=== PATIENT | male | born 1940 | race Caucasian/White ===

== ENCOUNTER → 2018-04-25 | Outpatient (CLI) | payer MEDICARE, BC ==
--- NOTE | 2018-04-25 09:26 | Diagnostic Imaging Report ---
PROCEDURE:ABDOMINAL ULTRASOUND COMPARISON:None. INDICATIONS:Dyspepsia, rectal bleeding, epigastric pain FINDINGS: Liver: Measures 13.2 cm with increased hepatic parenchymal echogenicity. No focal mass. Main portal vein: Measures 0.8 cm with normal hepatopetal flow. Gallbladder: No stones or wall thickening. Common Bile Duct: Measures 0.4 cm with no echogenic filling defect. Sonographic Guadarrama's sign: Negative Right kidney: Measures 11.8 x 5.2 x 6.1 cm. No solid or cystic mass, echogenic calculi or hydronephrosis. Normal parenchymal echogenicity. Left kidney: Measures 12.9 x 5.9 x 5.7 cm. No solid or cystic mass or echogenic calculi. Prominent left renal pelvis. Normal parenchymal echogenicity. Spleen: 13.0 x 6.7 x 5.4 cm. No mass. Pancreas: Limited visualization. Inferior vena cava: Limited visualization. Aorta: Limited visualization. Ascites: None. CONCLUSION: Increased hepatic echogenicity. Fabian Quintanilla D.O. Dictated by: Fabian Quintanilla D.O. on 04/25/2018 at 9:30 Electronically approved by: Fabian Quintanilla D.O. on 04/25/2018 at 9:30
== END ==
LOC: US 07:37
PROVIDERS: ATTEND Internal Medicine Gastroenterology
DX: R10.13 Epigastric pain (principal); K30 Functional dyspepsia; K62.5 Hemorrhage of anus and rectum; E11.9 Type 2 diabetes mellitus without complications; I10 Essential (primary) hypertension; E66.9 Obesity, unspecified; Z71.3 Dietary counseling and surveillance; Z80.0 Family history of malignant neoplasm of digestive organs
CPT/HCPCS: 76700

== ENCOUNTER → 2018-07-24 | Day surgery (SDC) | payer MEDICARE, BC ==
[2018-07-20 16:19] LABS: BASOPHILS % 0.5 % (0.0-1.0); EOSINOPHILS # (AUTO) 0.2 (0.0-0.4); EOSINOPHILS % 2.9 % (0.0-6.0); HEMOGLOBIN 13.4 g/dL (14.0-18.0); LYMPHOCYTES # (AUTO) 1.1 (1.0-3.2); MEAN CORPUSCULAR HEMOGLOBIN 30.3 pg (28-32); MEAN CORPUSCULAR HGB CONC 34.4 g/dL (31-35); MEAN CORPUSCULAR VOLUME 88.2 fL (81-99); MONOCYTES # (AUTO) 0.6 (0.2-0.8); NEUTROPHILS # (AUTO) 3.6 (2.1-6.9); NEUTROPHILS % 65.4 % (38.7-80.0); PLATELET COUNT 118 x10e3/uL (140-360); RED BLOOD COUNT 4.42 x10e6/uL (4.3-5.7); RED CELL DISTRIBUTION WIDTH 12.9 % (11.7-14.4)
[~2018-07-24] MED LIST: ASPIR 8181 MG PO; CARDIZEM CD120 MG PO; CARVEDILOL12.5 MG PO; CLOPIDOGREL75 MG PO; FUROSEMIDE40 MG PO; GABAPENTIN300 MG PO; HYDRALAZINE HCL 20 MG/ML VIAL ONE; ISOSORBIDE MONO20 MG PO; LOSARTAN POTASS25 MG PO; LOVAZA1 GM PO; METFORMIN HCL500 MG PO; METHOCARBAMOL750 MG PO; METOPROLOL TART50 MG PO; MIDAZOLAM HCL 2 MG/2 ML VIAL ONE; NORVASC5 MG PO; ONGLYZA5 MG PO; PANTOPRAZOLE SO40 MG PO; PAXIL CR25 MG PO; POTASSIUM CHLO10 ME1 PO; PRADAXA150 MG PO; PROPOFOL IV EMULSION 10 MG/ML 20 ML VIAL ONE; PROSCAR5 MG PO
[2018-07-24 09:30] VITALS: BP 146/90
--- NOTE | 2018-07-24 09:33 | Operative Report ---
DATE OF PROCEDURE: July 24, 2018 NAME OF PROCEDURES 1. Esophagogastroduodenoscopy. 2. Colonoscopy. PREPROCEDURE DIAGNOSIS: Patient with history of dyspepsia, nausea, abdominal pain and episodes of rectal bleeding here for esophagogastroduodenoscopy and colonoscopy. DESCRIPTION OF PROCEDURE: After informed written consent and premedication with monitored anesthesia care, a standard video Olympus gastroscope was introduced into the mouth, esophagus, stomach, and to the 2nd portion of the duodenum. The 1st and 2nd portions of the duodenum appeared to be normal. The antrum showed gastritis, and biopsies were done. No ulcers were noted. The body and fundus appeared to be normal. Retroflexion revealed a small sliding hiatal hernia. The rest of the esophagus was normal. Colonoscopy: Standard video Olympus colonoscope was introduced into the rectum and all the way into the cecum. The cecum and appendiceal orifice appeared to be normal. The mid-ascending colon showed a 3-mm polyp, which was removed using cold biopsy forceps. The transverse colon was normal. The descending and sigmoid showed occasional diverticulosis. Small internal hemorrhoids were noted on retroflexion. IMPRESSION 1. Gastritis. 2. Hiatal hernia. 3. Diverticulosis. 4. Colon polyp. 5. Internal hemorrhoids. RECOMMENDATIONS: Check pathology. Repeat colonoscopy in 5 years. If abdominal pain persists, further evaluation will be recommended. The patient has been advised to follow up in the office in 3 weeks. Job#: [id number]
== END | disposition home or self-care (01) ==
LOC: OR 05:51
PROVIDERS: ATTEND Internal Medicine Gastroenterology
DX: K29.70 Gastritis, unspecified, without bleeding (principal); D12.2 Benign neoplasm of ascending colon; K44.9 Diaphragmatic hernia without obstruction or gangrene; K57.30 Diverticulosis of large intestine without perforation or abscess without bleeding; K64.8 Other hemorrhoids; Z71.3 Dietary counseling and surveillance; I10 Essential (primary) hypertension; E11.9 Type 2 diabetes mellitus without complications; E66.9 Obesity, unspecified; G47.33 Obstructive sleep apnea (adult) (pediatric); I25.10 Atherosclerotic heart disease of native coronary artery without angina pectoris; I48.91 Unspecified atrial fibrillation; M10.9 Gout, unspecified; E78.5 Hyperlipidemia, unspecified; Z01.810 Encounter for preprocedural cardiovascular examination; Z01.812 Encounter for preprocedural laboratory examination; Z79.02 Long term (current) use of antithrombotics/antiplatelets; Z79.82 Long term (current) use of aspirin; Z79.84 Long term (current) use of oral hypoglycemic drugs; Z68.32 Body mass index [BMI] 32.0-32.9, adult; Z85.828 Personal history of other malignant neoplasm of skin; Z95.5 Presence of coronary angioplasty implant and graft; Z95.810 Presence of automatic (implantable) cardiac defibrillator; Z96.659 Presence of unspecified artificial knee joint; Z80.0 Family history of malignant neoplasm of digestive organs
CPT/HCPCS: 36415 ×2; 43239; 45380; 82948; 85025; 88305; 88312; 93005; J0360; J2250